=== PATIENT | female | born 1980 | race Caucasian/White ===

== ENCOUNTER 2018-06-09 00:15 | Emergency (ER) | payer BC ==
[~2018-06-09] VITALS: Ht 170.2 cm; Wt 70.3 kg
--- NOTE | 2018-06-09 00:25 | NUR ---
TO BED 1 AMBULATORY C/O CHEST TIGHTNESS WITH SOB AND WEAKNESS AFTER TAKING NORCO & FLEXERIL. PT AAOX4 NO ACUTE DISTRESS NOTED, RESP EVEN AND UNLABORED. PT APPEARS ANXIOUS. PLACE PT ON CARDIAC MONITORING, CONTINUOUS POX. PENDING ER MD ENRIQUE.
--- NOTE | 2018-06-09 00:36 | NUR ---
ciera pierson at bedside to jesenia mcclellan.
--- NOTE | 2018-06-09 00:57 | NUR ---
[employer] BILL[employer] AT BEDSIDE FOR CXR.
[2018-06-09 00:59] LABS: BASOPHILS % (AUTO) 0.4 % (0.0-2.0); EOSINOPHILS % (AUTO) 3.3 % (0.0-6.0); HEMATOCRIT 42 % (33-45); HEMOGLOBIN 14.2 g/dL (11.5-14.8); LYMPHOCYTES # (AUTO) 2.5 /CMM (0.8-4.8); LYMPHOCYTES % (AUTO) 45.2 % (20.0-44.0); MEAN CORPUSCULAR HGB CONC 34 g/dl (31.0-36.0); MEAN CORPUSCULAR VOLUME 90 fL (82-100); MONOCYTES # (AUTO) 0.5 /CMM (0.1-1.30); MONOCYTES % (AUTO) 8.9 % (2.0-12.0); NEUTROPHILS # (AUTO) 2.4 /CMM (1.8-8.9); NEUTROPHILS % (AUTO) 42.2 % (43.0-81.0); PLATELET COUNT (AUTO) 192 /CMM (150-450); RED BLOOD CELL COUNT(AUTO) 4.67 MIL/uL (4.0-5.2); WHITE BLOOD COUNT (AUTO) 5.6 K/uL (4.3-11.0)
--- NOTE | 2018-06-09 00:59 | NUR ---
URINE SAMPLE COLLECTED AND SENT TO LAB.
[2018-06-09 01:02] LABS: APPEARANCE,URINE Clear (CLEAR); BILIRUBIN,URINE Negative (NEGATIVE); BLOOD, URINE Negative Ery/uL (NEGATIVE); COLOR,URINE Yellow (YELLOW); KETONES,URINE Negative (NEGATIVE); LEUKOCYTE ESTERASE ,URINE Trace (NEGATIVE); NITRITE, URINE Negative (NEGATIVE); PROTEIN,URINE Negative (NEGATIVE); UGLUCOSE Negative (NEGATIVE); UROBILINOGEN,URINE 0.2 EU/dL (0.2)
[2018-06-09 01:07] LABS: CARBON DIOXIDE 27 mmol/L (21-32); CHLORIDE 103 mmol/L (98-107); CREATININE 0.9 mg/dL (0.6-1.3); GLUCOSE 74 mg/dL (74-106); POTASSIUM 3.7 mmol/L (3.5-5.1); SODIUM SERUM 139 mmol/L (136-145); UREA NITROGEN, BLOOD 11 mg/dL (7-18)
[2018-06-09] MEDS ORDERED: LORAZEPAM 0.5 MG TABLET ONE (01:29)
[2018-06-09] MEDS ORDERED: LORAZEPAM 1 MG TABLET PO ONE (01:30)
[2018-06-09 01:42] LABS: BACTERIA,URINE Few /HPF (None Seen); RBC,URINE 0-2 /HPF (0-2); SQUAMOUS EPITHELIAL CELL,UR Few /HPF (None Seen)
--- NOTE | 2018-06-09 03:07 | NUR ---
PT AMBULATORY TO THE BATHROOM WITH STEADY GAIT NOTED.
--- NOTE | 2018-06-09 03:23 | NUR ---
IV removed. Catheter intact and site benign. Pressure and 4x4 applied to site. No bleeding noted. Patient discharged to home in stable condition. Written and verbal after care instructions given. Patient verbalizes understanding of instruction. pt aaox4 no acute distress noted, resp even and unlabored. advice pt not to drive or operate any machinery due to pt was given ativan. pt verbalize understanding. pt at bedside to take pt home.
[2018-06-09 03:33] VITALS: BP 127/76
== END 2018-06-09 03:34 | disposition home or self-care (01) ==
LOC: ER 00:19
DX: F41.9 Anxiety disorder, unspecified (principal); T42.4X5A Adverse effect of benzodiazepines, initial encounter; G89.18 Other acute postprocedural pain; G89.29 Other chronic pain; I42.0 Dilated cardiomyopathy; M54.9 Dorsalgia, unspecified; Z95.0 Presence of cardiac pacemaker; Y92.89 Other specified places as the place of occurrence of the external cause
CPT/HCPCS: 36415; 71045-TC; 80048-TC; 81000-TC; 84484-TC; 84702-TC; 85025-TC; 85378-TC